=== PATIENT | male | born 1965 | race Caucasian/White ===

== ENCOUNTER 2020-05-08 14:10 | Inpatient (IN) | payer BC, SELFPAY ==
[~2020-05-08] VITALS: Ht 175.3 cm; Wt 98.9 kg
--- NOTE | 2020-05-08 15:02 | NUR ---
Placed in room 07 . Placed on quality assurance monitor body, blood pressure machine and pulse oximeter. To gown for exam. Side rails up.
[2020-05-08 15:03] VITALS: BP_SYST 149
--- NOTE | 2020-05-08 15:20 | NUR ---
Pt came to ER, stated had a fever at home but when asked temperature he stated it was 97 and 98 yesterday as well as 95 one other time he took it. Pt is currently resting in [facility] no SOB, no distress, tachycardic at this time.
--- NOTE | 2020-05-08 16:00 | NUR ---
ER at bedside examining patient.
[2020-05-08 16:19] LABS: BASOPHILS % (AUTO) 0.1 % (0.0-2.0); HEMATOCRIT 50.6 % (36-54); HEMOGLOBIN 17.2 g/dL (14.0-18.0); LYMPHOCYTES # (AUTO) 0.6 K/uL (1.0-5.5); MEAN CORPUSCULAR HEMOGLOBIN 31 pg (27-31); MEAN CORPUSCULAR HGB CONC 34 % (32-36); MEAN CORPUSCULAR VOLUME 91 fL (79.0-98.0); MONOCYTES # (AUTO) 0.4 K/uL (0.0-1.0); MONOCYTES % (AUTO) 6.6 % (1.7-9.3); NEUTROPHILS # (AUTO) 5.3 K/uL (1.8-7.7); NEUTROPHILS % (AUTO) 83.3 % (40.0-70.0); PLATELET COUNT (AUTO) 213 K/uL (130-430); RED BLOOD CELL COUNT(AUTO) 5.53 MIL/uL (4.2-6.2); RED CELL DISTRIBUTION WIDTH 13.2 % (9.0-15.0); WHITE BLOOD COUNT (AUTO) 6.4 K/uL (4.8-10.8)
[2020-05-08 16:49] LABS: CALCIUM 8.5 mg/dL (8.4-11.0); CREATININE 0.97 mg/dL (0.55-1.30)
[2020-05-08 16:53] LABS: TOTAL BILIRUBIN 1.1 mg/dL (0.0-1.0)
--- NOTE | 2020-05-08 17:04 | NUR ---
pt resting, on 2L 02 via nasal cannula per RT request, VSS.
[2020-05-08 17:07] LABS: INR 1.1 (0.80-1.20)
[2020-05-08] MEDS ORDERED: NACL 0.9% 1,000 ML IV ONE (17:15)
[2020-05-08] MEDS ORDERED: POTASSIUM CHLORIDE 20 MEQ/PKT PACKET PO ONE (17:15)
[2020-05-08] MEDS ORDERED: KCL 20 mEq in 100 mL (PREMIX) 100 ML IV ONE (17:15)
[2020-05-08 17:39] LABS: CKMB RELATIVE INDEX 0.1 (0.0-2.9); CREATINE KINASE MB 0.6 ng/mL (0-3.6)
[2020-05-08] MEDS ORDERED: cefTRIAXone 1 GM IVPB PREMIX 50 ML IV ONE (18:00)
[2020-05-08] MEDS ORDERED: DEXAMETHASONE SOD PHOSPHATE 10 MG/ML VIAL IVP ONE (18:00)
[2020-05-08] MEDS ORDERED: AZITHROMYCIN 250 MG in NS 250 ML IV ONE (18:30)
--- NOTE | 2020-05-08 19:20 | NUR ---
Report recieved from KEISHA Colin. For continuation of care.
--- NOTE | 2020-05-08 19:30 | NUR ---
AxOx4. Pt on cellphone, requesting water. No respiratory distress, 2L via nasal canula.
[2020-05-08] MEDS ORDERED: AZITHROMYCIN 500 MG/VIAL (ZITHROMAX) IV ONE (20:10)
--- NOTE | 2020-05-08 20:30 | NUR ---
Pt requesting a snack, turkey sandwich and juice given. No other complaints at this time.
--- NOTE | 2020-05-09 | NUR ---
Pt is resting comfortably in bed, no acute distress noted at this time. Will continue to monitor.
--- NOTE | 2020-05-09 01:00 | NUR ---
Pt is resting in bed, no acute distress noted at this time. Will continue to monitor.
--- NOTE | 2020-05-09 02:00 | NUR ---
Pt is resting in bed, no acute distress noted at this time. Will continue to monitor.
--- NOTE | 2020-05-09 03:00 | NUR ---
Pt is sleeping, will continue to monitor.
--- NOTE | 2020-05-09 04:00 | NUR ---
Pt is resting in bed, chest rise and fall observed. No acute distress noted at this time. Will continue to monitor.
--- NOTE | 2020-05-09 04:18 | NUR ---
ADMIT NOTE Received pt from ER to the floor with a diagnosis of covid pna. Admission process initiated. patient oriented to pain management, safety and call light-teach back done.
--- NOTE | 2020-05-09 04:30 | NUR ---
Transfer to telemetry via ACLS protocol. Licensed nurse present. IV present no signs or symptoms of infiltration.
--- NOTE | 2020-05-09 05:24 | NUR ---
initial notes: awake, alert,oriented x 4. no pain, no distress, vital sign with in normal limit, pt has dry cough. iv lock to right and left wrist gauge 20- patent and intact. ambulatory with steady gait. orient to room and safety, explain plan of care. pt verbalized understanding, call light tin reach, bed low and lock position side rails up x 2. covid isolation. will monitor.
[2020-05-09 05:34] VITALS: BP_SYST 137
[2020-05-09] MEDS: D5/0.45 NS 1,000 ML IV SCH ×3 (05:49→23:15)
--- NOTE | 2020-05-09 05:53 | NUR ---
pt ambulate to bathroom steady gait, tolerate well.
--- NOTE | 2020-05-09 07:07 | NUR ---
closing: pt is awake, alert, oriented. no pain,no sob. stable. covid isolation. will give sbar report to am rn.
--- NOTE | 2020-05-09 07:13 | NUR ---
ID consult called: for Dr. Jeff Fay, regarding pna/covid, ordered by Dr. Alvarez, spoke with Glory. faxed face sheet to [phone]
[2020-05-09 07:16] LABS: BASOPHILS % (AUTO) 0.1 % (0.0-2.0); HEMATOCRIT 47.5 % (36-54); HEMOGLOBIN 16.1 g/dL (14.0-18.0); LYMPHOCYTES # (AUTO) 0.4 K/uL (1.0-5.5); MEAN CORPUSCULAR HEMOGLOBIN 31 pg (27-31); MEAN CORPUSCULAR HGB CONC 34 % (32-36); MEAN CORPUSCULAR VOLUME 93 fL (79.0-98.0); MONOCYTES # (AUTO) 0.2 K/uL (0.0-1.0); MONOCYTES % (AUTO) 5.2 % (1.7-9.3); NEUTROPHILS # (AUTO) 3.7 K/uL (1.8-7.7); NEUTROPHILS % (AUTO) 85.7 % (40.0-70.0); PLATELET COUNT (AUTO) 197 K/uL (130-430); RED BLOOD CELL COUNT(AUTO) 5.12 MIL/uL (4.2-6.2); RED CELL DISTRIBUTION WIDTH 13.3 % (9.0-15.0); WHITE BLOOD COUNT (AUTO) 4.3 K/uL (4.8-10.8)
--- NOTE | 2020-05-09 07:30 | NUR ---
OPENING NOTES: RECEIVED PATIENT FROM CARE ASSISTANT NURSE. PATIENT IS AWAKE AND ALERT x4 LAYING DOWN IN BED. PATIENT IS TOLERATING OXYGEN ON 2 L NASAL CANNULA WITH NO SIGNS OF DISTRESS OR SHORTNESS OF BREATH NOTED. PATIENT DENIES ANY PAIN AT THE MOMENT. IV SITES ARE PATENT WITH NO SIGNS OF INFILTRATION NOTED AND RUNNING FLUIDS ORDERED. PATIENT IN STABLE CONDITION. SAFETY, FALL, ASPIRATION, CONTACT AND DROPLET PRECAUTIONS ARE IN PLACE. BED LOCKED IN LOWEST POSITION WITH CALL LIGHT IN REACH. WILL CONTINUE TO MONITOR PATIENT FOR ANY CHANGES.
[2020-05-09 07:38] LABS: CALCIUM 8.3 mg/dL (8.4-11.0); CREATININE 0.77 mg/dL (0.55-1.30); POTASSIUM 3.6 mmol/L (3.5-5.1); THYROID STIMULATING HORMONE 0.53 uIu/mL (0.34-4.82)
[2020-05-09 08:21] LABS: C-REACTIVE PROTEIN QUANT 12.2 mg/dL (0-0.5)
[2020-05-09] MEDS: cefTRIAXone 1 GM in D5W 50 ML IV SCH (08:30)
[2020-05-09 08:31] VITALS: BP_SYST 129
[2020-05-09] MEDS: AZITHROMYCIN 250 MG in NS 250 ML IV SCH (10:18)
--- NOTE | 2020-05-09 10:33 | NUR ---
RN ROUNDS: PATIENT IS AWAKE AND ALERT x4 LAYING DOWN IN BED. PATIENT DENIES ANY PAIN AT THE MOMENT. PATIENT IS TOLERATING OXYGEN ON 2 L NASAL CANNULA WITH NO SIGNS OF INFILTRATION NOTED. CUP OF COFFEE GIVEN TO PATIENT PER HIS REQUEST. PATIENT IN STABLE CONDITION. WILL CONTINUE TO MONITOR PATIENT FOR ANY CHANGES.
[2020-05-09 12:00] VITALS: BP_SYST 127
--- NOTE | 2020-05-09 12:05 | NUR ---
RN ROUNDS: PATIENT IS AWAKE AND ALERT x4 LAYING DOWN IN BED. PATIENT DENIES ANY PAIN AT THE MOMENT. PATIENT IS TOLERATING OXYGEN ON 2 L NASAL CANNULA WITH NO SIGNS OF DISTRESS OR SHORTNESS OF BREATH NOTED. PATIENT IN STABLE CONDITION. WILL CONTINUE TO MONITOR PATIENT FOR ANY CHANGES.
--- NOTE | 2020-05-09 14:19 | NUR ---
RN ROUNDS: PATIENT IS AWAKE AND ALERT x4 LAYING DOWN IN BED. PATIENT DENIES ANY PAIN AT THE MOMENT. PATIENT IS TOLERATING OXYGEN ON 2 L NASAL CANNULA WITH NO SIGNS OF DISTRESS OR SHORTNESS OF BREATH NOTED. IV SITE IS PATENT WITH NO SIGNS OF INFILTRATION NOTED. PATIENT IN STABLE CONDITION. WILL CONTINUE TO MONITOR PATIENT FOR ANY CHANGES.
--- NOTE | 2020-05-09 15:48 | NUR ---
ID consult called: for Dr. Jeff Fay, regarding PNA, ordered by Dr. Alvarez, spoke with Charles. Face sheet faxed to office of Dr. Fay [phone]
[2020-05-09 16:39] VITALS: BP_SYST 126
--- NOTE | 2020-05-09 18:53 | NUR ---
CLOSING NOTES: PATIENT IS AWAKE AND ALERT x4 LAYING DOWN IN BED EATING DINNER. PATIENT IS TOLERATING OXYGEN ON 2 L NASAL CANNULA WITH NO SIGNS OF DISTRESS OR SHORTNESS OF BREATH NOTED. PATIENT DENIES ANY PAIN AT THE MOMENT. IV SITES ARE PATENT WITH NO SIGNS OF INFILTRATION NOTED AND RUNNING FLUIDS ORDERED. PATIENT IN STABLE CONDITION. SAFETY, FALL, ASPIRATION, CONTACT AND DROPLET PRECAUTIONS REMAINED IN PLACE THROUGHOUT THE SHIFT. BED LOCKED IN LOWEST POSITION WITH CALL LIGHT IN REACH. WILL ENDORSE PATIENT CARE TO ONCOMING INDUSTRIAL CONTROLS TECHNICIAN NURSE.
--- NOTE | 2020-05-09 19:20 | NUR ---
OPENING NOTE: Patient awake at this time, AOx4. No s/s of acute distress noted. Patient attached to 2L NC and tolerating well. Breathing is even and unlabored. IVF are infusing well. IV site without redness or infiltration. Bed is locked in lowest position, call light with patient. Patient educated on importance and use of call light. Patient verbalized understanding and demonstrated proper use. Bed alarm not indicated as patient is ambulatory with a steady gait. No further needs. Will continue to monitor.
[2020-05-09 20:00] VITALS: BP_SYST 126
--- NOTE | 2020-05-09 21:06 | NUR ---
SNACKS PROVIDED: Snacks provided to patient at this time. No further needs at this time. Bed locked in lowest position, call light with patient. Will continue to monitor.
--- NOTE | 2020-05-09 23:15 | NUR ---
ROUNDS: Patient is awake and watching television at this time. No s/s of acute distress noted. Breathing is even and unlabored. All safety measures in place. No further needs. Will continue to monitor.
[2020-05-10] VITALS: BP_SYST 115
--- NOTE | 2020-05-10 01:18 | NUR ---
ROUNDS: Patient is resting at this time. No s/s of acute distress noted. Breathing is even and unlabored. All safety measures in place. No further needs. Will continue to monitor.
[2020-05-10 04:00] VITALS: BP_SYST 143
--- NOTE | 2020-05-10 04:10 | NUR ---
SPOKE WITH LAB REGARDING COVID RESULTS: Spoke with lab, patient has tested positive for COVID-19.
--- NOTE | 2020-05-10 06:28 | NUR ---
CLOSING NOTE: Patient awake at this time, AOx4. No s/s of acute distress noted. Patient attached to 2L NC and tolerating well. Breathing is even and unlabored. IVF are infusing well. IV site without redness or infiltration. All safety/isolation precautions maintained throughout the shift. All needs met throughout the shift. Will continue to monitor until endorsement of care to dayshift nurse.
--- NOTE | 2020-05-10 07:40 | NUR ---
Opening Notes Patient is awake, alert and oriented x4, laying in bed. No resp distress noted. Breathing is even and unlabored. Patient remains on continuous oxygen @ 2 LPM, tolerated well, saturating @ 94%. Patient denies any pain at this time. Patient is ambulatory, steady gait. IV site on left wrist, 20 gauge & IV on right wrist , 20 gauge, intact. D5 1/2 NS @ 50 cc/hr infusing well. Skin intact. All needs met at this time. Call light within reach. Bed in lowest position, alarm on, locked.
[2020-05-10 08:00] VITALS: BP_SYST 138
[2020-05-10] MEDS: AZITHROMYCIN 250 MG in NS 250 ML IV SCH (09:00)
[2020-05-10] MEDS: cefTRIAXone 1 GM in D5W 50 ML IV SCH (09:00)
--- NOTE | 2020-05-10 10:30 | NUR ---
Notes Patient is laying in bed resting, watching TV. No resp distress at this time. Breathing is even and unlabored. No needs at this time. Safety and fall precautions in place. Bed in lowest position, locked. Will continue to monitor.
[2020-05-10 12:00] VITALS: BP_SYST 138
--- NOTE | 2020-05-10 12:00 | NUR ---
Notes Patient is awake, alert and oriented x4. No resp distress noted. Breathing is even and unlabored. Patient denies any pain at this time. All needs met at this time. Patient is ambulatory and is able to ambulate safely throughout his room. Safety and fall precautions in place. Bed in lowest position, alarm on, locked. Will continue to monitor.
--- NOTE | 2020-05-10 14:30 | NUR ---
Notes Patient is sleeping in bed, resting. No resp distress. Breathing is even and unlabored. Patient shows no pain at this time. Safety and fall precautions in place. Bed in lowest position, locked. Will continue to monitor.
[2020-05-10 16:00] VITALS: BP_SYST 131
--- NOTE | 2020-05-10 18:47 | NUR ---
Closing Notes Patient is alert and oriented x4. No resp distress noted. Breathing is even and unlabored. Patient denies any pain at this time. IV site on left wrist, 20 gauge intact and right wrist, 20 gauge. D5 1/2 NS @ 50 cc/hr, infusing well. Patient is eating dinner at this time. Patient is ambulatory, steady gait. All needs met at this time. Safety and fall precautions in place. Call light within reach. Bed in lowest position, locked. Will continue to monitor.
[2020-05-10 20:00] VITALS: BP_SYST 125
[2020-05-10] MEDS: ASCORBIC ACID 500 MG TABLET PO SCH (20:45)
[2020-05-10] MEDS: D5/0.45 NS 1,000 ML IV SCH (20:45)
--- NOTE | 2020-05-10 21:05 | NUR ---
LINEN CHANGE: Linen changed at this time per patient request. Patient partially assisted with changing of gown. No further needs at this time. All safety measures in place. Will continue to monitor.
--- NOTE | 2020-05-10 23:45 | NUR ---
IV RE-INSERTION: Complaining of pain to IV site on right wrist. IV removed with catheter fully intact. No active bleeding. Patient had access on left wrist. IVF resumed on that site without signs of infiltration. Will continue to monitor. Addendum: 05/10/20 at 2347 by Donna Matthew RN IV REMOVAL NOT RE-INSERTION
[2020-05-11] VITALS: BP_SYST 129
[2020-05-11 04:00] VITALS: BP_SYST 135
[2020-05-11] MEDS: ASCORBIC ACID 500 MG TABLET PO SCH ×2 (08:48→21:37)
[2020-05-11] MEDS: AZITHROMYCIN 250 MG in NS 250 ML IV SCH (09:01)
[2020-05-11] MEDS: cefTRIAXone 1 GM in D5W 50 ML IV SCH (09:01)
[2020-05-11 09:38] LABS: BASOPHILS % (AUTO) 0.3 % (0.0-2.0); EOSINOPHILS % (AUTO) 0.3 % (0.0-4.0); HEMOGLOBIN 15.2 g/dL (14.0-18.0); LYMPHOCYTES # (AUTO) 1.2 K/uL (1.0-5.5); MEAN CORPUSCULAR HEMOGLOBIN 31 pg (27-31); MEAN CORPUSCULAR HGB CONC 34 % (32-36); MEAN CORPUSCULAR VOLUME 92 fL (79.0-98.0); MONOCYTES # (AUTO) 0.6 K/uL (0.0-1.0); MONOCYTES % (AUTO) 8.8 % (1.7-9.3); NEUTROPHILS # (AUTO) 4.6 K/uL (1.8-7.7); NEUTROPHILS % (AUTO) 71.6 % (40.0-70.0); PLATELET COUNT (AUTO) 270 K/uL (130-430); RED BLOOD CELL COUNT(AUTO) 4.89 MIL/uL (4.2-6.2); RED CELL DISTRIBUTION WIDTH 13.4 % (9.0-15.0); WHITE BLOOD COUNT (AUTO) 6.4 K/uL (4.8-10.8)
[2020-05-11 09:47] LABS: CALCIUM 8.3 mg/dL (8.4-11.0); CREATININE 0.75 mg/dL (0.55-1.30); POTASSIUM 3.4 mmol/L (3.5-5.1)
[2020-05-11 09:52] LABS: ALBUMIN 2.7 g/dL (3.4-4.8); C-REACTIVE PROTEIN QUANT 3.6 mg/dL (0-0.5); TOTAL BILIRUBIN 0.7 mg/dL (0.0-1.0)
--- NOTE | 2020-05-11 13:03 | NUR ---
OPENING NOTE: PT AWAKE, ALERT, ORIENTED, ABLE TO MAKE NEEDS KNOWN, RESPIRATIONS EVEN AND UNLABORED, NO ACUTE DISTRESS AND NO PAIN NOTED. WILL CONTINUE TO MONITOR. Addendum: 05/11/20 at 1304 by Darin Lyle RN ORIGINALLY ASSESSED AT 0730
[2020-05-11 18:43] VITALS: BP_SYST 127
--- NOTE | 2020-05-11 18:58 | NUR ---
CLOSING NOTES: HOURLY ROUNDING PERFORMED. PT ALERT, AWAKE, ABLE TO MAKE NEEDS KNOWN, RESPIRATIONS EVEN AND UNLABORED, NO ACUTE DISTRESS, NO PAIN NOTED, ENDORSED PATIENT TO ENTRY LEVEL [place] FOR CONTINUITY OF CARE.
--- NOTE | 2020-05-11 19:20 | NUR ---
OPENING NOTES Patient is resting, no signs of acute respiratory distress observed, IV site patent, dressings c/d/i. Dr. Fay to be paged. Call light within reach, bed alarm refused after patient demonstrated proper use of call light, bed at lowest position. Will continue to monitor.
--- NOTE | 2020-05-11 19:30 | NUR ---
OPENING NOTES Patient is resting, no signs of acute respiratory distress observed, 2L NC. IV site patent, dressings c/d/i, IVF running. Call light within reach, bed alarm refused after patient demonstrated proper usage of call light. Will continue to monitor.
--- NOTE | 2020-05-11 19:50 | NUR ---
PAGED DR. ROJAS.
[2020-05-11 20:00] VITALS: BP_SYST 138
--- NOTE | 2020-05-11 20:43 | NUR ---
2ND PAGE FOR DR. ROAJS
--- NOTE | 2020-05-11 21:00 | NUR ---
SPOKE TO DR. ROJAS ASKING IF ANTIBIOTICS CAN BE PO FOR THE PATIENT TO BE D/C HOME, FOR D/C ORDER. DR. ROJAS WANTS TO SEE PATIENT BEFORE MAKING DECISION. WILL CALL DR. PATEL TO NOTIFY DR. ROJAS'S WISHES.
--- NOTE | 2020-05-11 21:20 | NUR ---
SPOKE TO DR. PATEL TO NOTIFY DR. ROJAS WOULD LIKE TO SEE PATIENT BEFORE CHANGING ORDERS FOR ANTIBIOTICS. DR. PATEL SAYS HE UNDERSTANDS AND WANTS TO DISCHARGE AFTER DR. ROJAS CLEARS PATIENT. WILL CHANGE ORDERS.
[2020-05-11] MEDS: D5/0.45 NS 1,000 ML IV SCH (21:37)
[2020-05-12] VITALS: BP_SYST 138
--- NOTE | 2020-05-12 00:06 | NUR ---
Patient is resting after ambulating with steady gait to restroom. Patient has no shortness of breath and is ok without oxygen for a short while. Will continue to monitor.
--- NOTE | 2020-05-12 04:11 | NUR ---
Patient is asleep, no signs of shortness of breath. Will continue to monitor.
--- NOTE | 2020-05-12 06:53 | NUR ---
CLOSING NOTES Patient is resting, no signs of acute respiratory distress observed, 2L NC. IV site patent, dressings c/d/i, IVF running. Call light within reach, bed alarm refused after proper call light usage demonstrated. All needs met throughout shift. Will endorse care to oncoming shift.
[2020-05-12 08:00] VITALS: BP_SYST 139
--- NOTE | 2020-05-12 08:00 | NUR ---
Initial notes In bed awake and ambulatory. denies any chest pain or shortness of breath at this time. IVF infusing well. Afebrile. Update plan of care. call light within reach. enc to call for help as needed. Will monitor.
[2020-05-12] MEDS: cefTRIAXone 1 GM in D5W 50 ML IV SCH (08:54)
[2020-05-12] MEDS: ASCORBIC ACID 500 MG TABLET PO SCH ×2 (08:54→20:14)
[2020-05-12] MEDS: AZITHROMYCIN 250 MG in NS 250 ML IV SCH (10:29)
--- NOTE | 2020-05-12 12:56 | NUR ---
Notes watching tv, no distress noted. Afebrile, denies any cough. enc to call for help as needed.
--- NOTE | 2020-05-12 16:00 | NUR ---
Notes- Watching tv. No complaints. On room air tolerating well.
[2020-05-12 16:02] VITALS: BP_SYST 135
[2020-05-12] MEDS ORDERED: LEVO500T89 PO (18:43)
--- NOTE | 2020-05-12 19:05 | NUR ---
OPENING NOTES Patient is resting, no signs of acute respiratory distress observed, room air. IV site patent, dressings c/d/i, IVF running. Call light within reach, bed alarm refused after patient demonstrated proper usage of call light. Received report that patient is ready to be discharged with discharge order. Will continue to monitor.
[2020-05-12 19:30] VITALS: BP_SYST 131
--- NOTE | 2020-05-12 20:30 | NUR ---
Patient resting, no signs of distress observed. will be picking up patient.
--- NOTE | 2020-05-12 21:20 | NUR ---
D/C Patient Patient given medication reconciliation form and D/C instructions in Syriac. Exit Care provided. Patient verbalized understanding. MD discussed with patient the results and treatment provided. Ambulatory with steady gait for discharge to home. Patient in stable condition, ID band removed. IV catheter removed, intact and dressing applied, no active bleeding. Patient provided two masks and patient educated on Covid and respiratory distress and pulse oxymeter use. Provided teaching to come to ER if patient continues pulse ox of 91% saturation. All belongings sent with patient.
[2020-05-12] MEDS ORDERED: HEPARIN SODIUM,PORCINE 5000 UNITS/ML VIAL SUBCUT SCH (22:00)
--- NOTE | 2020-05-12 23:39 | NUR ---
OPENING NOTES Patient is resting, no signs of acute respiratory distress observed, room air. IV site patent, dressings c/d/i, IVF running. Call light within reach, bed alarm refused after patient demonstrated proper usage of call light. Received report that patient is ready to be discharged with discharge order. Will continue to monitor. Addendum: 05/12/20 at 2340 by Lj Sweeney RN WRONG TIME, PLEASE DISREGARD
== END 2020-05-12 21:20 | disposition home or self-care (01) | DRG 177 ==
LOC: SED 14:10 → STU 18:16 → SMU 05-09 04:30
PROVIDERS: ADMIT Internal Medicine; ATTEND Internal Medicine
DX: U07.1 COVID-19 (principal); J12.89 Other viral pneumonia; D72.810 Lymphocytopenia; Z90.49 Acquired absence of other specified parts of digestive tract
CPT/HCPCS: 36415; 36600; 71045; 80048; 80053; 80061; 82550-TC; 82553-TC; 82728; 82803-TC; 83605; 83615-TC; 83880; 84443-TC; 84484; 85025; 85384-TC; 85610-TC; 85730-TC; 86140; 87040-TC; 93005; 96361; 96365; 96367; 99291; G0378; J0456; J0696; J1100; J1644; J3480; J7050; J7060; U0003-CS